=== PATIENT | male | born 1980 | race Caucasian/White ===

== ENCOUNTER 2018-01-03 21:12 | Emergency (ER) | payer MEDICAID ==
[2018-01-03 21:21] VITALS: BP 117/89
--- NOTE | 2018-01-03 22:04 | EDPHY ---
H & P Stated Complaint: MED CLEAR FOR [facility] Time Seen by Provider: 01/03/18 21:58 HPI/ROS: HPI The patient presents with medical clearance for nursing home. He was taken down by police about an hour ago. He fell to the ground, landing on his left lower back and has had pain in a well-circumscribed area which is achy, mild, worse with changes in position. He does not have any midline pain. He does not have any numbness or tingling of his arms or legs. REVIEW OF SYSTEMS Constitutional: No fever, no chills. Eyes: No discharge. ENT: No sore throat. Cardiovascular: No chest pain, no palpitations. Respiratory: No cough, no shortness of breath. Gastrointestinal: No abdominal pain, no vomiting. Genitourinary: No hematuria. Musculoskeletal: No back pain. Skin: No rashes. Neurological: No headache. PMHx: Prior hand fracture Soc Hx: Currently incarcerated, works delivering newspapers PHYSICAL General Appearance: Alert, no distress Eyes: Pupils equal and round no pallor or injection ENT, Mouth: Mucous membranes moist Respiratory: There are no retractions, lungs are clear to auscultation Cardiovascular: Tachycardic rate and regular rhythm Gastrointestinal: Abdomen is soft and non-tender, no masses, bowel sounds normal Back: There is no midline tenderness, lateral to approximately L5 there is tenderness overlying the pelvic bone without any overlying skin changes, there is full range of motion of his spine Neurological: A&O, moves all extremities Skin: Warm and dry, no rashes Musculoskeletal: Neck is supple non tender Extremities: symmetrical, full range of motion Psychiatric: Patient is oriented X 3, there is no agitation Source: Patient Exam Limitations: No limitations - Personal History Current Tetanus/Diphtheria Vaccine: Yes Current Tetanus Diphtheria and Acellular Pertussis (TDAP): Yes - Medical/Surgical History Hx Asthma: No Hx Chronic Respiratory Disease: No Hx Diabetes: No Hx Cardiac Disease: No Hx Renal Disease: No Hx Cirrhosis: No Hx Alcoholism: No Hx HIV/AIDS: No Hx Splenectomy or Spleen Trauma: No Other PMH: ORTHO INJURIES - Social History Smoking Status: Never smoked Constitutional: Initial Vital Signs Temperature (C) 37.2 C 01/03/18 21:15 Heart Rate 111 H 01/03/18 21:15 Respiratory Rate 20 01/03/18 21:15 Blood Pressure 117/89 H 01/03/18 21:15 O2 Sat (%) 95 01/03/18 21:15 O2 Delivery Mode Room Air Allergies/Adverse Reactions: No Known Allergies Allergy (Unverified 01/03/18 21:20) Home Medications: Medication Instructions Recorded NK [No Known Home Meds] 01/03/18 Medical Decision Making Differential Diagnosis: 37-year-old male presents for medical clearance for nursing home after being taken down by police, now complaining of left-sided lower back pain. On exam, no midline tenderness, no neurologic deficits, generally well-appearing with minimal tenderness. I feel he may be suffering from a soft tissue contusion. I doubt vertebral fracture or dislocation. I have discussed rest, ice, ibuprofen as needed. She will be discharged to nursing home. Departure - Departure Disposition: Law Enforcement/Court/[facility] Clinical Impression: Medical clearance for incarceration Lower back injury Qualifiers: Encounter type: initial encounter Qualified Code(s): S39.92XA - Unspecified injury of lower back, initial encounter Condition: Good Instructions: Musculoskeletal Pain (ED) Additional Instructions: The it does not appear that you of suffered from any serious injuries of your back. I think you may have a bruised muscle. I recommend that you use ice packs when possible, avoid any heavy lifting, take ibuprofen 400 mg every 6 hr. You should return to the emergency department if your worse in any way. Referrals: [facility],. [Clinic] - As per Instructions
== END 2018-01-03 22:00 ==
DX: S39.92XA Unspecified injury of lower back, initial encounter (principal); W19.XXXA Unspecified fall, initial encounter